=== PATIENT | female | born 1990 | race African-American/Black ===

== ENCOUNTER 2021-07-14 17:42 | Emergency (ER) | payer OTHER ==
[2021-07-14] MEDS ORDERED: Orphenadrine 100 MG Tab.ER PO STA (19:23)
[2021-07-14] MEDS ORDERED: Ibuprofen 600 MG Tab PO ONE (19:23)
== END 2021-07-14 20:08 | disposition home or self-care (01) ==
LOC: JD.ED 17:42
DX: S00.03XA Contusion of scalp, initial encounter (principal); M54.50 Low back pain, unspecified; J45.909 Unspecified asthma, uncomplicated; I10 Essential (primary) hypertension; E66.9 Obesity, unspecified; Z68.43 Body mass index [BMI] 50.0-59.9, adult; Z79.899 Other long term (current) drug therapy; V69.00XA Driver of heavy transport vehicle injured in collision with unspecified motor vehicles in nontraffic accident, initial encounter; Y92.410 Unspecified street and highway as the place of occurrence of the external cause
CPT/HCPCS: 99283; A9270; 99284